=== PATIENT | female | born 1990 | race Caucasian/White ===

== ENCOUNTER → 2025-04-30 12:32 | Outpatient (REF) | payer BC, SELFPAY | LOC: RAD 12:32 | PROVIDERS: ATTENDING PHYSICIAN Nurse Practitioner Family; FAMILY PHYSICIAN Family Medicine | DX: O20.9 Hemorrhage in early pregnancy, unspecified (principal) | CPT/HCPCS: 76801 ==

== ENCOUNTER 2025-05-01 19:29 | Emergency (ER) | payer BC, SELFPAY ==
[2025-05-01 19:36] VITALS: BP 151/99
[2025-05-01 20:10] LABS: Hematocrit 35.8 % (37.0-47.0); Hemoglobin 12.3 g/dL (12.0-16.0); Mean Corp Hgb Conc. 34.4 g/dL (33.0-37.0); Mean Corpuscular Volume 80.8 fL (81.0-99.0); Nucleated Red Blood Cells % 0 %; Platelet Count 283 10^3/uL (130-400); Red Cell Dist. Width 14.0 % (11.5-14.5)
[2025-05-01 20:30] LABS: ALT (SGPT) 19 U/L (0-35); AST (SGOT) 16 U/L (14-36); Albumin 4.2 g/dl (3.5-5.0); Alkaline Phosphatase 54 U/L (38-126); Blood Urea Nitrogen 10 mg/dl (7-17); Calcium 9.5 mg/dl (8.4-10.2); Carbon Dioxide 20 mmol/L (22-30); Chloride 105 mmol/L (98-107); Glucose 133 mg/dl (70-99); Potassium 3.9 mmol/L (3.5-5.1); Sodium 134 mmol/L (135-145); Total Protein 7.0 g/dl (6.3-8.2); eGFR > 60.00
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
[2025-05-01 21:17] LABS: Beta HCG Quantitative 125050.00 mIU/ml
[2025-05-01 22:12] VITALS: BP 121/85
[2025-05-02] MEDS: RHOGAM 300 MCG IM (00:03)
== END 2025-05-02 00:12 | disposition home or self-care (01) ==
LOC: EMR 19:29
PROVIDERS: Emergency Medicine; EMERGENCY PHYSICIAN Emergency Medicine; FAMILY PHYSICIAN Family Medicine
DX: O46.8X1 Other antepartum hemorrhage, first trimester (principal); O09.511 Supervision of elderly primigravida, first trimester; O36.0910 Maternal care for other rhesus isoimmunization, first trimester, not applicable or unspecified; Z29.13 Encounter for prophylactic Rho(D) immune globulin; Z3A.08 8 weeks gestation of pregnancy
CPT/HCPCS: 96372; 99284; 76801; 80053; 84702; 85025; 86850; 86900; 86901; J2790

== ENCOUNTER → 2025-06-05 10:52 | Outpatient (REF) | payer BC, SELFPAY | LOC: PNTC 10:52 | PROVIDERS: ATTENDING PHYSICIAN Obstetrics & Gynecology | DX: Z36.0 Encounter for antenatal screening for chromosomal anomalies (principal); Z36.82 Encounter for antenatal screening for nuchal translucency; O41.8X10 Other specified disorders of amniotic fluid and membranes, first trimester, not applicable or unspecified; O09.511 Supervision of elderly primigravida, first trimester; O99.351 Diseases of the nervous system complicating pregnancy, first trimester; O35.5XX0 Maternal care for (suspected) damage to fetus by drugs, not applicable or unspecified | CPT/HCPCS: 76801; 76813 ==

== ENCOUNTER → 2025-06-28 13:20 | Outpatient (REF) | payer BC, SELFPAY | LOC: PNTC 13:20 | PROVIDERS: ATTENDING PHYSICIAN Obstetrics & Gynecology | DX: O09.512 Supervision of elderly primigravida, second trimester (principal); O99.352 Diseases of the nervous system complicating pregnancy, second trimester; O35.5XX0 Maternal care for (suspected) damage to fetus by drugs, not applicable or unspecified | CPT/HCPCS: 76805 ==